=== PATIENT | male | born 1970 | race African-American/Black ===

== ENCOUNTER 2019-06-05 00:22 | Emergency (ER) | payer MEDICAID ==
[~2019-06-05] VITALS: Ht 167.6 cm; Wt 70.5 kg
[2019-06-05 02:36] LABS: GLUCOSE,POINT OF CARE 86 MG/DL (70-110)
[2019-06-05 03:00] VITALS: BP 133/89
== END 2019-06-05 03:25 | disposition home or self-care (01) ==
LOC: EMS 00:24
DX: I73.9 Peripheral vascular disease, unspecified (principal); F20.9 Schizophrenia, unspecified; I10 Essential (primary) hypertension; M54.9 Dorsalgia, unspecified; F17.210 Nicotine dependence, cigarettes, uncomplicated; F12.90 Cannabis use, unspecified, uncomplicated; F15.90 Other stimulant use, unspecified, uncomplicated
CPT/HCPCS: 82948